=== PATIENT | male | born 1970 | race Two or more races ===

== ENCOUNTER → 2024-11-21 | Outpatient (CLI) | payer BC, SELFPAY ==
--- NOTE | 2024-11-21 08:10 | XR_ITS ---
Examination: Venous duplex lower extremity sonogram, bilateral. Date and time of exam: November 21, 2024 0853 hours INDICATIONS: Left leg pain and numbness beginning 6 months ago Technique: Multiple sonographic images of the deep venous system have been obtained. B-mode/2-D grayscale imaging of vascular structures and Doppler spectral analysis (waveforms) and color performed Both legs are examined. Findings: Deep venous systems do not demonstrate abnormal echogenicity. All visualized deep veins exhibit compressibility. All visualized deep veins exhibit augmentation. Impression: Negative for deep vein thrombosis
== END | disposition home or self-care (01) ==
LOC: CDIM 07:54
PROVIDERS: PCP Registered Nurse Community Health; Referring Provider Registered Nurse Community Health; Visit Provider Registered Nurse Community Health
DX: M79.605 Pain in left leg (principal); E11.65 Type 2 diabetes mellitus with hyperglycemia; E78.2 Mixed hyperlipidemia
CPT/HCPCS: 93970

== ENCOUNTER → 2024-11-29 | Outpatient (CLI) | payer BC, SELFPAY ==
--- NOTE | 2024-11-29 15:21 | XR_ITS ---
Examination: Lumbar spine, 5 views Technique: Lumbar spine AP, lateral, coned lateral lower lumbar spine, bilateral obliques 5 views Exam date and time: November 29, 2024 1529 hours INDICATIONS: Low back pain months. FINDINGS: Mild osteopenia Moderate diffuse facet arthropathy. No lumbar fracture Moderate lumbar spondylosis Mild to moderate diffuse lumbar degenerative disc disease IMPRESSION: Mild to moderate diffuse lumbar degenerative disc disease with significant spinal stenosis
--- NOTE | 2024-11-29 15:21 | XR_ITS ---
Examination: Bilateral hips, AP pelvis, 5 views Technique: AP, lateral views both hips, AP pelvis, 5 views Exam date and time: November 29, 2024 1529 hours INDICATIONS: Bilateral hip pain months. FINDINGS: Bilateral mild to moderate hip osteoarthritis No hip or pelvic fracture No avascular necrosis IMPRESSION: Bilateral mild to moderate hip osteoarthritis
== END | disposition home or self-care (01) ==
PROVIDERS: PCP Registered Nurse Community Health; Referring Provider Registered Nurse Community Health; Visit Provider Registered Nurse Community Health
DX: M51.360 Other intervertebral disc degeneration, lumbar region with discogenic back pain only (principal); M48.061 Spinal stenosis, lumbar region without neurogenic claudication; M16.0 Bilateral primary osteoarthritis of hip
CPT/HCPCS: 72110; 73523

== ENCOUNTER → 2024-12-12 | Outpatient (CLI) | payer BC, SELFPAY ==
--- NOTE | 2024-12-12 15:15 | XR_ITS ---
Examination: MRI lumbar spine without contrast Date and time of exam: December 12, 2024 1834 hours INDICATIONS: Low back pain radiating to the left lower leg with numbness in the lower calf 18 months Technique: Multiple MRI axial and sagittal sections lumbar spine. Sagittal T2-weighted images, TR 3500, TE 118 T1 weighted transverse sections, TR 688 T8.5, T2-weighted sagittal sections T1 weighted sagittal sections TR 621, TE 30 T2 axial sections, TR 4, 190, TE 84. Findings: Adequate alignment lumbar vertebral bodies Normal lumbar fracture Adequate marrow signal lumbar vertebral bodies No spondylolisthesis L5-S1 4 mm on lumbar disc bulge contiguous with the right S1 nerve root, extending to the left foramen with mild left L5 ganglionic impression L4-L5 severe spinal stenosis, axial image 4, 6 mm central and right disc bulge, prominent facet arthropathy and thickening of ligamenta flava L3-L4 partially extruded 5 mm central lumbar disc bulge L2-L3 no disc protrusion A 102 2 mm left paracentral disc bulge IMPRESSION: L5-S1 4 mm central lumbar disc bulge contiguous with the right S1 nerve root, extending to the left intervertebral foramen with mild left L5 ganglionic compression L4-L5 severe overall spinal stenosis including 6 mm central and right paracentral disc bulge prominent facet arthropathy and thickening of ligamentum flavum L3-L4 partially extruded 5 mm central lumbar disc bulge
== END | disposition home or self-care (01) ==
PROVIDERS: PCP Registered Nurse Community Health; Referring Provider Registered Nurse Community Health; Visit Provider Registered Nurse Community Health
DX: G95.20 Unspecified cord compression (principal); M48.061 Spinal stenosis, lumbar region without neurogenic claudication; M47.896 Other spondylosis, lumbar region; M51.26 Other intervertebral disc displacement, lumbar region
CPT/HCPCS: 72148